=== PATIENT | male | born 1950 | race African-American/Black ===

== ENCOUNTER 2018-07-27 01:16 | Emergency (ER) | payer MEDICARE, MEDICAID ==
[~2018-07-27] VITALS: Ht 167.6 cm; Wt 65.3 kg
[2018-07-27 02:05] LABS: Basophils # (auto) 0.1 uL; Basophils % (auto) 1.1 % (0.0-2.0); Eosinophils # (auto) 0.1 uL; Eosinophils % (auto) 2.1 % (0.0-7.0); Hematocrit 37.7 % (41.0-53.0); Hemoglobin 11.8 g/dL (13.5-17.5); Lymphocytes # (auto) 2.8 uL; Lymphocytes % (auto) 53.8 % (10.0-50.0); Mean Corpuscular Hemoglobin 27.7 pg (28.0-32.0); Mean Corpuscular Hgb Conc. 31.4 g/dL (32.0-36.0); Mean Corpuscular Volume 88.2 fL (80.0-100.0); Monocytes # (auto) 0.4 uL; Monocytes % (auto) 7.6 % (0.0-12.0); Neutrophils # (auto) 1.8 uL; Neutrophils % (auto) 35.4 % (37.0-80.0); Nucleated Red Blood Cells % 0.1 %; Platelet Count (auto) 188 10^3/uL (140-450); Red Blood Cells 4.27 10^6/uL (4.5-5.90); Red Cell Distribution Width 15.5 % (11.8-14.3); White Blood Cell 5.2 10^3/uL (4.4-10.8)
[2018-07-27 02:18] LABS: Albumin 2.5 g/dL (3.4-5.0); BUN/Creatinine Ratio 14.1; Magnesium 1.9 mg/dL (1.6-2.6); Potassium 3.7 mmol/L (3.5-5.1)
[2018-07-27 02:21] LABS: Bilirubin, Total 0.2 mg/dL (0.2-1.0); Total Protein 7.1 g/dL (6.4-8.2)
[2018-07-27] MEDS ORDERED: DILTIAZEM HCL 60 MG TAB PO ONE (04:30)
[2018-07-27 04:55] LABS: Urine WBC None Seen /hpf (0 - 3)
[2018-07-27 05:08] LABS: Urine Bacteria NONE SEEN /hpf (None Seen); Urine Blood Negative /uL (Negative); Urine Specific Gravity 1.013 (1.001-1.035)
[2018-07-27] MEDS ORDERED: ONDANSETRON ODT 4 MG TAB PO ONE (07:15)
[2018-07-27] MEDS ORDERED: IPRATROPIUM BROM 0.5 MG/2.5ML INH SOL NEB ONE (07:15)
[2018-07-27] MEDS ORDERED: ONDANSETRON HCL 4 MG/2 ML VIAL IV ONE (07:15)
[2018-07-27] MEDS ORDERED: ALBUTEROL SULF 2.5 MG/0.5ML(0.5%) NEB SOLN NEB ONE (07:15)
[2018-07-27 07:31] VITALS: BP 138/79
== END 2018-07-27 09:29 | disposition home or self-care (01) ==
LOC: ER 01:16 → EDBD 01:16 → ER 09:29
DX: J44.9 Chronic obstructive pulmonary disease, unspecified (principal); K52.9 Noninfective gastroenteritis and colitis, unspecified; E11.9 Type 2 diabetes mellitus without complications; I10 Essential (primary) hypertension; F17.210 Nicotine dependence, cigarettes, uncomplicated
CPT/HCPCS: 36415; 71045; 80053; 81001; 83735; 85025; 94640

== ENCOUNTER 2018-08-27 10:41 | Inpatient (IN) | payer MEDICARE, MEDICAID ==
[~2018-08-27] VITALS: Ht 177.8 cm; Wt 65.1 kg
[2018-08-27 11:52] LABS: Basophils # (auto) 0 uL; Basophils % (auto) 0.8 % (0.0-2.0); Eosinophils # (auto) 0.1 uL; Hemoglobin 13.1 g/dL (13.5-17.5); Lymphocytes # (auto) 2.7 uL; Lymphocytes % (auto) 44.2 % (10.0-50.0); Mean Corpuscular Hemoglobin 28.4 pg (28.0-32.0); Mean Corpuscular Hgb Conc. 31.9 g/dL (32.0-36.0); Mean Corpuscular Volume 88.9 fL (80.0-100.0); Monocytes # (auto) 0.6 uL; Monocytes % (auto) 9.5 % (0.0-12.0); Neutrophils # (auto) 2.7 uL; Neutrophils % (auto) 43.5 % (37.0-80.0); Nucleated Red Blood Cells % 0.2 %; Platelet Count (auto) 180 10^3/uL (140-450); Red Blood Cells 4.61 10^6/uL (4.5-5.90); Red Cell Distribution Width 15.3 % (11.8-14.3); White Blood Cell 6.1 10^3/uL (4.4-10.8)
[2018-08-27 12:13] LABS: BUN/Creatinine Ratio 13.1; Bilirubin, Total 0.5 mg/dL (0.2-1.0); Magnesium 1.9 mg/dL (1.6-2.6); Potassium 3.1 mmol/L (3.5-5.1); Total Protein 7.6 g/dL (6.4-8.2)
[2018-08-27] MEDS ORDERED: SODIUM CHLORIDE 0.9% 1,000 ML IVB ONE (12:42)
[2018-08-27 14:24] LABS: INR 0.98 (0.9-1.15); Partial Thromboplastin Time 26.6 sec (23.78-33.04); Prothrombin Time 10.5 sec (9.27-12.13)
[2018-08-27] MEDS ORDERED: ASPirin-EC 81 mg tab PO ONE ×2 (15:00→18:30)
[2018-08-27] MEDS ORDERED: POTASSIUM CHL 20 Meq TABLET PO ONE (15:00)
[2018-08-27] MEDS ORDERED: NITROGLYCERIN 0.4 MG SL TAB SL PRN (18:30)
[2018-08-27] MEDS ORDERED: MORPHINE SULFATE 4 MG/ML SYR/VIAL IV PRN ×2 (18:30)
[2018-08-27] MEDS ORDERED: DOCUSATE SOD 100 MG CAP PO PRN (18:30)
[2018-08-27] MEDS ORDERED: ACETAMINOPHEN 325 MG TAB PO PRN (18:30)
[2018-08-27] MEDS ORDERED: LEVOFLOXACIN 250MG 50 ML IV ONE (18:30)
[2018-08-27] MEDS ORDERED: DEXTROSE (50%) 50ML SYRG IV PRN (18:30)
[2018-08-27] MEDS ORDERED: HYDROcodone-ACET 5/325MG TAB PO PRN (18:30)
[2018-08-27] MEDS: ASPirin-EC 81 mg tab PO SCH (18:39)
[2018-08-27] MEDS ORDERED: FAMOTIDINE 20 MG TAB PO SCH (22:00)
[2018-08-27] MEDS: SODIUM CHLOR 0.9% PF (SALINE LOCK) 10ML VIAL/SYR IV SCH (22:10)
[2018-08-27] MEDS: ACCU-CHEK COMFORT CURVE STRIP VI SCH (22:21)
[2018-08-27] MEDS: ATENOLOL 25 MG TAB PO SCH (22:21)
[2018-08-27] MEDS: InsuLIN REG 1unit/0.01ml Soln (100units/ml) SC SCH (22:21)
[2018-08-27] MEDS: ATORVASTATIN 20 MG TAB PO SCH (22:22)
[2018-08-27 22:26] LABS: Urine Bacteria NONE SEEN /hpf (None Seen); Urine Blood Negative /uL (Negative); Urine Specific Gravity 1.016 (1.001-1.035); Urine WBC 1 /hpf (0 - 3)
[2018-08-28] MEDS: cloNIDine HCL 0.1 MG TAB PO PRN (00:06)
[2018-08-28] MEDS: SODIUM CHLOR 0.9% PF (SALINE LOCK) 10ML VIAL/SYR IV SCH ×3 (06:00→22:17)
[2018-08-28] MEDS: ACCU-CHEK COMFORT CURVE STRIP VI SCH ×4 (06:14→22:18)
[2018-08-28] MEDS ORDERED: DEXTROSE 50% SYRINGE 50 ML IV ONE (06:16)
[2018-08-28 06:37] LABS: Basophils # (auto) 0 uL; Basophils % (auto) 0.7 % (0.0-2.0); Eosinophils # (auto) 0.1 uL; Eosinophils % (auto) 2.3 % (0.0-7.0); Hematocrit 37.1 % (41.0-53.0); Hemoglobin 11.9 g/dL (13.5-17.5); Lymphocytes # (auto) 1.9 uL; Lymphocytes % (auto) 33.9 % (10.0-50.0); Mean Corpuscular Hemoglobin 28.7 pg (28.0-32.0); Mean Corpuscular Hgb Conc. 32.2 g/dL (32.0-36.0); Mean Corpuscular Volume 89.1 fL (80.0-100.0); Monocytes # (auto) 0.6 uL; Monocytes % (auto) 11.6 % (0.0-12.0); Neutrophils # (auto) 2.9 uL; Neutrophils % (auto) 51.5 % (37.0-80.0); Nucleated Red Blood Cells % 0.2 %; Platelet Count (auto) 155 10^3/uL (140-450); Red Blood Cells 4.16 10^6/uL (4.5-5.90); White Blood Cell 5.6 10^3/uL (4.4-10.8)
[2018-08-28] MEDS: InsuLIN REG 1unit/0.01ml Soln (100units/ml) SC SCH ×4 (06:37→22:18)
[2018-08-28] MEDS ORDERED: DEXTROSE (50%) 50ML SYRG IV ONE (06:45)
[2018-08-28 06:53] LABS: Albumin 2.5 g/dL (3.4-5.0); BUN/Creatinine Ratio 12.5; Calcium 7.2 mg/dL (8.5-10.1); Potassium 3.3 mmol/L (3.5-5.1)
[2018-08-28 06:55] LABS: Bilirubin, Total 0.4 mg/dL (0.2-1.0); Total Protein 6.7 g/dL (6.4-8.2)
[2018-08-28] MEDS: Glucerna Carbsteady SHAKE Vanilla 8oz PO SCH ×3 (08:38→20:44)
[2018-08-28] MEDS ORDERED: LEVOFLOXACIN 250MG 50 ML IV SCH (10:00)
[2018-08-28] MEDS: MULTIPLE VITAMIN TAB PO SCH (10:28)
[2018-08-28] MEDS: ENOXAPARIN SOD 40 MG/0.4 ML SYRINGE SC SCH (10:28)
[2018-08-28] MEDS: ATENOLOL 25 MG TAB PO SCH ×2 (10:28→22:17)
[2018-08-28] MEDS ORDERED: POTASSIUM CHL 20MEQ/100ML 100 ML IV ONE (14:30)
[2018-08-28] MEDS: ONDANSETRON HCL 4 MG/2 ML VIAL IV PRN ×2 (14:43→22:59)
[2018-08-28 14:48] LABS: Alcohol, Urine < 3.0 mg/dL (0-5); Amphetamine Screen, Urine NEGATIVE (NEGATIVE); Barbiturate Scree,Urine NEGATIVE (NEGATIVE); Benzodiazephine Screen, Urine NEGATIVE (NEGATIVE); Cannabinoid Screen, Urine NEGATIVE (NEGATIVE); Cocaine Screen, Urine NEGATIVE (NEGATIVE); Opiate Scree,Urine NEGATIVE (NEGATIVE); Phencyclidine Screen, Urine NEGATIVE (NEGATIVE)
[2018-08-28] MEDS: SOD CHL 0.45% 1,000 ML IV SCH (15:04)
[2018-08-28] MEDS ORDERED: OPTISON 3ml Vial for INJ IV ONE (15:51)
[2018-08-28] MEDS ORDERED: PANTOPRAZOLE 40 MG/10 ML VIAL IV ONE (16:15)
[2018-08-28 18:15] VITALS: BP 164/94
[2018-08-28 22:00] VITALS: BP 143/85
[2018-08-28] MEDS: ATORVASTATIN 20 MG TAB PO SCH (22:17)
[2018-08-29] VITALS (7 sets, daily range): BP systolic 143–170; BP diastolic 84–97
[2018-08-29] MEDS: SOD CHL 0.45% 1,000 ML IV SCH (04:15)
[2018-08-29] MEDS: InsuLIN REG 1unit/0.01ml Soln (100units/ml) SC SCH ×3 (06:28→19:29)
[2018-08-29] MEDS: ACCU-CHEK COMFORT CURVE STRIP VI SCH ×3 (06:29→19:30)
[2018-08-29] MEDS: SODIUM CHLOR 0.9% PF (SALINE LOCK) 10ML VIAL/SYR IV SCH ×3 (06:29→16:07)
[2018-08-29 07:05] LABS: Basophils # (auto) 0 uL; Basophils % (auto) 0.7 % (0.0-2.0); Eosinophils # (auto) 0.1 uL; Lymphocytes # (auto) 2.1 uL; Lymphocytes % (auto) 33.7 % (10.0-50.0); Mean Corpuscular Hgb Conc. 32.5 g/dL (32.0-36.0); Mean Corpuscular Volume 89.2 fL (80.0-100.0); Monocytes # (auto) 0.5 uL; Monocytes % (auto) 8.2 % (0.0-12.0); Neutrophils # (auto) 3.4 uL; Neutrophils % (auto) 55.4 % (37.0-80.0); Nucleated Red Blood Cells % 0.4 %; Platelet Count (auto) 168 10^3/uL (140-450); Red Blood Cells 4.15 10^6/uL (4.5-5.90); White Blood Cell 6.1 10^3/uL (4.4-10.8)
[2018-08-29] MEDS: ONDANSETRON HCL 4 MG/2 ML VIAL IV PRN (07:10)
[2018-08-29 07:20] LABS: BUN/Creatinine Ratio 10.9; Calcium 7.7 mg/dL (8.5-10.1); Potassium 3.2 mmol/L (3.5-5.1)
[2018-08-29] MEDS: Glucerna Carbsteady SHAKE Vanilla 8oz PO SCH ×3 (08:00→19:30)
[2018-08-29] MEDS ORDERED: LORazepam 2MG/ML-1ML VIAL IV ONE (08:30)
[2018-08-29] MEDS ORDERED: PANTOPRAZOLE 40 MG/10 ML VIAL IV SCH (10:00)
[2018-08-29] MEDS ORDERED: ADENOSINE 55 MG in GIVE UN-DILUTED 0 ML IV ONE (12:15)
[2018-08-29] MEDS: ASPirin-EC 81 mg tab PO SCH (13:51)
[2018-08-29] MEDS: ENOXAPARIN SOD 40 MG/0.4 ML SYRINGE SC SCH (13:51)
[2018-08-29] MEDS: ATENOLOL 25 MG TAB PO SCH (13:52)
[2018-08-29] MEDS: POTASSIUM CHL 20MEQ/100ML 100 ML IV SCH ×2 (13:52→16:04)
[2018-08-29] MEDS: MULTIPLE VITAMIN TAB PO SCH (13:52)
[2018-08-29] MEDS ORDERED: SOD CHL 0.45% 1,000 ML IV SCH (15:00)
[2018-08-29] MEDS ORDERED: CAR3125T PO (15:49)
[2018-08-29] MEDS ORDERED: PANT40TA2 PO (15:49)
[2018-08-29] MEDS ORDERED: LISI-646 PO (15:49)
[2018-08-29] MEDS ORDERED: ASP81EC PO (15:49)
[2018-08-29] MEDS ORDERED: ATOR20TA50 PO (15:49)
[2018-08-29] MEDS ORDERED: MULTTAB99 PO (15:49)
[2018-08-29] MEDS: cloNIDine HCL 0.1 MG TAB PO PRN (17:57)
== END 2018-08-29 20:55 | disposition home or self-care (01) | DRG 198 ==
LOC: EDBD 10:41 → ER 10:46 → TELE 10:47 → TELE-CENTR 08-28 18:20
PROVIDERS: ADMIT Internal Medicine; ATTEND Internal Medicine
DX: I24.0 Acute coronary thrombosis not resulting in myocardial infarction (principal); N17.0 Acute kidney failure with tubular necrosis; G92 Toxic encephalopathy; E44.0 Moderate protein-calorie malnutrition; E87.0 Hyperosmolality and hypernatremia; E11.21 Type 2 diabetes mellitus with diabetic nephropathy; E11.36 Type 2 diabetes mellitus with diabetic cataract; E83.51 Hypocalcemia; I08.3 Combined rheumatic disorders of mitral, aortic and tricuspid valves; R41.0 Disorientation, unspecified; N18.3 Chronic kidney disease, stage 3 (moderate); E11.22 Type 2 diabetes mellitus with diabetic chronic kidney disease; E87.6 Hypokalemia; Z88.0 Allergy status to penicillin; Z82.49 Family history of ischemic heart disease and other diseases of the circulatory system; F17.210 Nicotine dependence, cigarettes, uncomplicated; H53.8 Other visual disturbances; Z68.20 Body mass index [BMI] 20.0-20.9, adult; E78.5 Hyperlipidemia, unspecified; I13.0 Hypertensive heart and chronic kidney disease with heart failure and stage 1 through stage 4 chronic kidney disease, or unspecified chronic kidney disease; I42.9 Cardiomyopathy, unspecified; I44.7 Left bundle-branch block, unspecified; I50.42 Chronic combined systolic (congestive) and diastolic (congestive) heart failure; K29.70 Gastritis, unspecified, without bleeding
CPT/HCPCS: 36415; 70450; 70480; 71045; 78452; 80048; 80053; 80307; 81001; 82962; 83036; 83735; 84484; 85025; 85610; 85730; 87086; 93005; 93017; 93306; 93886; 94761; 96361; 96374; C9113; J0153; J1815; J2405; J3480; Q9956